=== PATIENT | male | born 1935 | race Caucasian/White ===

== ENCOUNTER 2024-03-13 15:48 | Outpatient (AMB) | payer MEDICARE, OTHER, SELFPAY ==
--- NOTE | 2024-03-13 15:48 | HO.NEPHOV_ITS ---
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 Accompanied by: Spouse Allergies Penicillins Allergy (Unknown, Verified 03/13/24 15:52) Hives Medication List - Last Reconciled 03/13/24 by Antonio Lares MD amlodipine 5 mg PO DAILY cholecalciferol (vitamin D3) 125 mcg PO DAILY clopidogrel 75 mg PO DAILY coenzyme Q10 (Co Q-10) 300 mg PO DAILY dulaglutide (Trulicity) 0.75 mg subcut QWEEK finasteride 5 mg PO DAILY furosemide 40 mg PO DAILY glucosamine HCl 1,000 mg PO DAILY PRN latanoprost 0.005% drps ophthalmic (eye) lovastatin 40 mg PO DAILY tamsulosin 0.8 mg PO DAILY timolol maleate 0.5% drps ophthalmic (eye) valsartan 80 mg PO DAILY vitamins A,C,V-zyll-ehuzci 2,148 mcg-113 mg-45 mg-17.4mg (PreserVision AREDS) 2 tabs PO BID HPI Comments Details: Gabe is a pleasant 88-year-old man with a history of longstanding diabetes keanu litus and hypertension who has been referred for evaluation of CKD. He was accompanied by his . Today he has no specific complaints. In April of 2023 serum creatinine was 2.0 with a EGFR of about 32 mL/minute In 01/21/2024 serum creatinine was 2.14 with a EGFR of 29 mL/minute [facility] Medical History (Updated 03/13/24 @ 15:53 by Antonio Lares MD) Chronic kidney disease Hyperlipidemia Other obesity due to excess calories Ecchymosis Shortness of breath Mixed hyperlipidemia Essential hypertension Diabetes Diabetes mellitus with stage 3 chronic kidney disease Carotid stenosis Benign prostatic hyperplasia Surgical History History of cataract surgery History of hip replacement History of hernia repair Review of Systems Const Denies fatigue, Denies fever(s), Denies headache(s) and Denies weight loss Eyes Denies blurry vision ENT Denies headache(s) Card Denies chest pain Resp Denies cough and Denies hemoptysis GI Denies abdominal pain, Denies diarrhea and Denies nausea Denies hematuria, Denies urinary frequency and Denies urinary hesitancy Musc Denies back pain Neuro Denies confusion, Denies headache(s) and Denies focal weakness Psych Denies confusion Endo Denies cold intolerance, Denies fatigue and Denies polyuria Physical Exam Vital Signs: Last Vital Signs Pulse 79 03/13/24 15:49 BP 112/56 L 03/13/24 15:49 Pulse Ox 97 03/13/24 15:49 Oxygen Delivery Method Room Air 03/13/24 15:49 BMI result Body Mass Index 28.1 Comfortable Neck supple no JVD. Lungs entry equal no rales. Heart S1-S2 heard no gallop or rub. Abdomen soft nontender. Neuro alert awake oriented. No asterixis. Extremities no edema. Const General: No confusion Orientation/consciousness: No confusion Neuro General: No confusion Results Reviewed Results Reviewed: All labs were reviewed Nephrology Results: No Data to Display Assessment & Plan Assessment & Plan (1) Chronic kidney disease: Code(s): N18.9 - Chronic kidney disease, unspecified Category: Medical Plan Gabe has stage IIIB to early stage IV CKD in a setting of longstanding hypertension diabetes mellitus. 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 However obstructive uropathy should be ruled out. Based on recent urine studies I do not believe he has any active glomerular nephritis or interstitial disease at this time. Recommendation Check renal ultrasonogram Check urine studies including urine protein creatinine ratio Maintain blood pressure less than 130/80 Continue to avoid nephrotoxic agents including NSAIDs Stay on low-sodium diet increase p.o. fluid intake. Further workup and management will be based on the outcome of the above investigations. Orders: Orders US renal BI 03/13/24 N18.9 - Chronic kidney disease, unspecified Basic Metabolic Panel 4 Weeks N18.9 - Chronic kidney disease, unspecified Coding Level of Care Code New Pt Level 4 (00942) Diagnoses Chronic kidney disease N18.9
[2024-03-13 15:49] VITALS: BP 112/56; PULSE 79; O2SAT 97; BMI 28.1
--- OUTSIDE RECORDS SUMMARY | 2024-03-14 03:04 | XMS_ITS ---
Author Name [facility] Organization Unknown Results Test Name/Text Value Interpretation Date Range Source FUNGAL CULTURE NO FUNGUS ISOLATED Normal [id number] [facility] History of Medication Use Medication Directions Dispensed Refills Start Date End Date Stat valsartan 80 mg tablet TAKE 1 TABLET BY MOUTH EVERY DAY 02/21/2024 04/02/9999 active prednisolone acetate 1 % eye drops,suspension INSTILL 1 DROP LEFT EYE 3 TIMES A DAY 02/21/2024 04/02/9999 active finasteride 5 mg tablet TAKE 1 TABLET BY MOUTH EVERY DAY IN THE EVENING 02/21/2024 04/02/9999 active tamsulosin 0.4 mg capsule 2 CAPSULE EVERY EVENING 02/21/2024 04/02/9999 active latanoprost 0.005 % eye drops INSTILL 1 DROP INTO BOTH EYES AT BEDTIME 02/21/2024 04/02/9999 active baclofen 10 mg tablet TAKE ONE TABLET BY MOUTH EVERY DAY 02/21/2024 04/02/9999 active lovastatin 40 mg tablet TAKE 1 TABLET BY MOUTH EVERY DAY DIRECTED 02/21/2024 04/02/9999 active mupirocin 2 % topical ointment APPLY TO AFFECTED AREA TOPICALLY EVERY DAY 02/21/2024 04/02/9999 active doxycycline hyclate 100 mg capsule 1 CAPSULE TWICE A DAY X7 DAYS 02/21/2024 04/02/9999 active amlodipine 5 mg tablet TAKE 1 TABLET BY MOUTH EVERY DAY 02/21/2024 04/02/9999 active furosemide 40 mg tablet TAKE 1 TABLET BY MOUTH 1 TIME EACH DAY. 02/21/2024 04/02/9999 active timolol maleate 0.5 % eye drops INSTILL 1 DROP IN RIGHT EYE EVERY MORNING 02/21/2024 04/02/9999 active meloxicam 15 mg tablet TAKE 1 TABLET BY MOUTH EVERY DAY 02/21/2024 04/02/9999 active tramadol 50 mg tablet TAKE 1 TABLET BY MOUTH EVERY 8 HOURS NEEDED 02/21/2024 04/02/9999 active Trulicity 0.75 mg/0.5 mL subcutaneous pen injector INJECT CONTENTS OF 1 SYRINGE UNDER SKIN ONCE A WEEK 02/21/2024 04/02/9999 active clopidogrel 75 mg tablet TAKE 1 TABLET BY MOUTH EVERY DAY 02/21/2024 04/02/9999 active furosemide (LASIX) 40 mg tablet Take 1 tablet (40 mg total) by mouth 1 (one) time each day. 02/14/2024 04/02/9999 active amLODIPine (NORVASC) 10 mg tablet TAKE 1 TABLET BY MOUTH EVERY DAY 02/10/2024 04/02/9999 active finasteride (PROSCAR) 5 mg tablet Take 1 tablet (5 mg total) by mouth every evening. 02/10/2024 04/02/9999 active latanoprost (XALATAN) 0.005 % ophthalmic solution Place 1 drop into both eyes every night at bedtime. 02/10/2024 04/02/9999 active cyanocobalamin (VITAMIN B-12) 1,000 mcg tablet Take 1,000 mcg by mouth every morning with breakfast. 02/10/2024 04/02/9999 active cholecalciferol (VITAMIN D-3) 25 mcg (1,000 unit) tablet Take 1,000 Units by mouth daily. 02/10/2024 04/02/9999 active tamsulosin (FLOMAX) 0.4 mg 24 hr capsule TAKE 1 CAPSULE EVERY DAY EVERY EVENING 02/10/2024 04/02/9999 active dulaglutide (Trulicity) 0.75 mg/0.5 mL pen injector injection Inject under the skin. 02/10/2024 04/02/9999 active SITagliptin phosphate (JANUVIA) 100 mg tablet Take 100 mg by mouth daily. 02/10/2024 04/02/9999 active ubidecarenone (COENZYME Q10 ORAL) Take 300 mg by mouth every morning with breakfast. 02/10/2024 04/02/9999 active clopidogreL (PLAVIX) 75 mg tablet Take 75 mg by mouth daily. 02/10/2024 04/02/9999 active valsartan (DIOVAN) 80 mg tablet Take 80 mg by mouth daily. 02/10/2024 04/02/9999 active lovastatin (MEVACOR) 40 mg tablet TAKE 1 TABLET BY MOUTH EVERY DAY DIRECTED 02/10/2024 04/02/9999 active Glucosamine-Chondroit- Vit C-Mn (GLUCOSAMINE 1500 COMPLEX PO) Take 1,500 mg by mouth 2 (two) times a day. 02/07/2024 04/02/9999 active mupirocin (BACTROBAN) 2 % ointment Apply topically daily. 02/07/2024 04/02/9999 active finasteride (PROSCAR) 5 MG tablet Take 1 tablet (5 mg total) by mouth every evening. 02/07/2024 04/02/9999 active Coenzyme Q10 (COQ10 PO) Take 300 mg by mouth every morning with breakfast. 02/07/2024 04/02/9999 active timolol (BETIMOL) 0.25 % ophthalmic solution 1-2 drops daily. 02/07/2024 04/02/99 active dulaglutide (Trulicity) 0.75 MG/0.5ML subcutaneous pen-injector Inject under the skin. 02/07/2024 04/02/9999 active amLODIPine (NORVASC) tablet 5 mg Take 1 tablet (5 mg total) by mouth daily. 02/07/2024 04/02/9999 active furosemide (LASIX) 40 MG tablet Take 1 tablet (40 mg total) by mouth daily. 02/07/2024 04/02/9999 active clopidogrel (PLAVIX) 75 MG tablet Take 1 tablet (75 mg total) by mouth daily. 02/07/2024 04/02/9999 active latanoprost (XALATAN) 0.005 % ophthalmic solution Place 1 drop into both eyes every night at bedtime. 02/07/2024 04/02/9999 active Multiple Vitamins-Minerals (PRESERVISION AREDS 2 PO) Take 1 tablet by mouth 2 (two) times a day. 02/07/2024 04/02/9999 active cholecalciferol (VITAMIN D3) 1000 UNITS tablet Take 1 tablet (1,000 Units total) by mouth daily. 02/07/2024 04/02/9999 active Blood Glucose Monitoring Suppl (ACCU-CHEK GUIDE ME) w/Device KIT 1 kit by Other route daily. Check blood sugar once a day before breakfast 02/07/2024 04/02/9999 active valsartan (DIOVAN) tablet 80 mg Take 1 tablet (80 mg total) by mouth daily. 02/07/2024 04/02/9999 active vitamin B-12 (CYANOCOBALAMIN) 1000 MCG tablet Take 1 tablet (1,000 mcg total) by mouth every morning with breakfast. 02/07/2024 04/02/9999 active ACCU-CHEK SOFTCLIX LANCETS lancets Check blood sugar once a day every morning before breakfast. 02/07/2024 04/02/9999 active tamsulosin (FLOMAX) 0.4 MG CAPS TAKE 1 CAPSULE EVERY DAY EVERY EVENING 02/07/2024 04/02/9999 active lovastatin (MEVACOR) 40 MG tablet TAKE 1 TABLET BY MOUTH EVERY DAY DIRECTED 02/07/2024 04/02/9999 active D3 25mcg (1000units) Softgel 10/20/2023 active Clopidogrel 75mg 10/20/2023 acti ve Trulicity 0.75mg/0.5mL Solution for Injection 10/20/2023 ac tive CoQ10 100mg Softgel 10/20/2023 a ctive Lovastatin 40mg Tablet 10/20/2023 active amLODIPine (NORVASC) tablet 10 mg TAKE 1 TABLET BY MOUTH EVERY DAY 08/21/2023 aborted Multiple Vitamins-Minerals (ONE-A-DAY 50 PLUS PO) Take by mouth daily. 08/04/2023 active dulaglutide (Trulicity) 0.75 MG/0.5ML subcutaneous pen-injector Inject under the skin. 08/04/2023 active valsartan (DIOVAN) tablet 80 mg Take 1 tablet (80 mg total) by mouth daily. 08/04/2023 active latanoprost (XALATAN) 0.005 % ophthalmic solution Place 1 drop into both eyes every night at bedtime. 08/04/2023 active amLODIPine (NORVASC) tablet 5 mg Take 1 tablet (5 mg total) by mouth daily. 08/04/2023 active lovastatin (MEVACOR) 40 MG tablet TAKE 1 TABLET BY MOUTH EVERY DAY DIRECTED 08/04/2023 active vitamin B-12 (CYANOCOBALAMIN) 1000 MCG tablet Take 1 tablet (1,000 mcg total) by mouth every morning with breakfast. 08/04/2023 active furosemide (LASIX) 40 MG tablet Take 1 tablet (40 mg total) by mouth daily. 08/04/2023 active Glucosamine-Chondroit- Vit C-Mn (GLUCOSAMINE 1500 COMPLEX PO) Take 1,500 mg by mouth 2 (two) times a day. 08/04/2023 active Coenzyme Q10 (COQ10 PO) Take 300 mg by mouth every morning with breakfast. 08/04/2023 active clopidogrel (PLAVIX) 75 MG tablet Take 1 tablet (75 mg total) by mouth daily. 08/04/2023 active Multiple Vitamins-Minerals (PRESERVISION AREDS 2 PO) Take 1 tablet by mouth 2 (two) times a day. 08/04/2023 active timolol (BETIMOL) 0.25 % ophthalmic solution 1-2 drops daily. 08/04/2023 active Blood Glucose Monitoring Suppl (ACCU-CHEK GUIDE ME) w/Device KIT 1 kit by Other route daily. Check blood sugar once a day before breakfast 08/04/2023 active finasteride (PROSCAR) 5 MG tablet TAKE 1 TABLET BY MOUTH EVERY DAY IN THE EVENING 08/04/2023 active cholecalciferol (VITAMIN D3) 1000 UNITS tablet Take 1 tablet (1,000 Units total) by mouth daily. 08/04/2023 active tamsulosin (FLOMAX) 0.4 MG CAPS TAKE 1 CAPSULE EVERY DAY EVERY EVENING 08/04/2023 active Allergies Allergen Reaction Severity Comment Documented Date Source Statu s PENICILLIN ENS_PODCRCT Problems Problem Status Onset Date Problem Type Date of Resolution Source BPH (benign prostatic hyperplasia) active ProblemAct [facility] Hypertension active ProblemAct [facility] Hyperlipidemia active ProblemAct [facility] Compression fracture of lumbar spine active ProblemAct E[facility]_AONECT Open wound of flank, sequela active EncounterDiagnosisAct [facility] Hypertension active ProblemAct [facility] Type 2 diabetes mellitus active ProblemAct [facility] (chronic kidney disease) stage 3, GFR 30-59 ml/min active ProblemAct [facility] Nail dystrophy active EncounterDiagnosisAct ENS_PODCRCT Type 2 diabetes mellitus without complications active EncounterDiagnosisAct E[facility]_PODCRCT Contusion of right great toe with damage to nail, initial encounter active ProblemAct ENS_PODCRCT Carotid atherosclerosis, unspecified laterality active EncounterDiagnosisAct [facility] Bilateral leg edema active EncounterDiagnosisAc t [facility] 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 active ProblemAct [facility] Ingrowing nail active EncounterDiagnosisAct ENS_PODCRCT Pulmonary hypertension (HCC) active EncounterDiagnosisAct [facility] CKD (chronic kidney disease) stage 3, GFR 30-59 ml/min active ProblemAct [facility] Type 2 diabetes mellitus active 2022-04 ProblemAct [facility] Fracture of twelfth thoracic vertebra active ProblemAct E[facility]_AON[facility] Lumbar spondylosis active ProblemAct [facility] Pure hypercholesterolemia active EncounterDiagnosisAct [facility] Immunizations Vaccine Date Source Lot Number Status Zoster recombinant (Shingrix) 19yo and older 08/31/2017 [facility] [id number] completed [facility] SARS-CoV-2 COVID-19, mRNA, LNP-S, preservative free 04/27/2020 [facility] [id number] completed Pneumococcal conjugate 13 [facility] (Prevnar 13, PCV13) 2mo and older 09/09/2014 [facility] [id number] complet ed Pfizer SARS-CoV-2 COVID-19, mRNA, LNP-S, preservative free 05/18/2020 [facility] [id number] completed
== END 2024-03-13 16:12 | disposition home or self-care (01) ==
PROVIDERS: PCP Internal Medicine; Referring Provider Internal Medicine; Visit Provider Internal Medicine Hypertension Specialist
DX: I12.9 Hypertensive chronic kidney disease with stage 1 through stage 4 chronic kidney disease, or unspecified chronic kidney disease (principal); E11.22 Type 2 diabetes mellitus with diabetic chronic kidney disease; N18.32 Chronic kidney disease, stage 3b
CPT/HCPCS: 99204